=== PATIENT | male | born 1970 | race Caucasian/White ===

== ENCOUNTER 2016-09-19 08:20 | Day surgery (SDC) | payer OTHER ==
[~2016-09-19] VITALS: Ht 177.8 cm; Wt 143.3 kg
--- NOTE | 2016-10-16 11:41 | OR ---
ADMIT: 09/19/2016 RM/LOC: [facility] MR#: [id number] [address] XANDER MARTÍNEZ [address] [place] [address] Operative/Delivery Room Report SEX: M AGE: 45 : 1970 SURGERY DATE: 09/19/2016 SURGEON: Solo Nugent MD SALES PROCESS MANAGER: CESAR Folwer PREPROCEDURE DIAGNOSES: 1. Bilateral inguinal hernias. 2. Umbilical hernia. POSTPROCEDURE DIAGNOSES: 1. Bilateral direct inguinal hernias. 2. Umbilical hernia. PROCEDURE: Laparoscopic bilateral inguinal hernia repair with mesh and open umbilical hernia repair with mesh. INDICATIONS: The patient is a morbidly obese, 45-year-old with symptomatic reducible bilateral inguinal hernias and reducible umbilical hernia presents for laparoscopic and open repairs. FINDINGS: The patient was taken to the operating room. General endotracheal anesthesia was induced. The patient's abdomen was prepped and draped in normal sterile fashion. The case was begun by making a transverse, infraumbilical, 3 cm skin incision using #11 blade. Dissection was carried down through subcutaneous fat. Using S shaped retractors, the anterior abdominal wall fascia to the right side of midline was incised vertically for a cm and half with #11 blade. The rectus muscle was retracted laterally. Preperitoneal balloon was placed into the preperitoneal space and insufflated under direct vision. The camera port was placed, CO2 was insufflated. Two midline 5 mm ports were placed under direct vision. The case was begun with atraumatic clamps to dissect out Vijay's ligament bilaterally and lateral to the epigastric vessels bilaterally. The patient was noted to have a right greater than left direct inguinal hernia defect that was easily reduced. There was no evidence of an indirect hernia on either side although I did dissect the peritoneal lining off the spermatic cord structures so our mesh could lay flat against the backside of the inguinal floor. We elected due to the patient's size, use both a large left and right preperitoneal 3D meshes and I put those into the intra-abdominal space. I covered both respective floors and tacked the medial inferior aspect of the mesh to Vijay's ligament bilaterally and then one secure strap both medial and lateral to the epigastric vessels bilaterally in a more cephalad fashion. We held the lower ADMIT: 09/19/2016 RM/LOC: [facility] MR#: [id number] [address] [place] [address] Operative/Delivery Room Report SEX: M AGE: 45 : 1970 edge of the mesh as we desufflated the preperitoneal space. With our mesh in excellent position, I removed all of our ports. We then dissected out the umbilical hernia sac with electrocautery, placed a 4 cm circular mesh into the intra-abdominal space, sutured the mesh to the surrounding fascial edges using interrupted 0 Ethibond suture. I cut the mesh tails and then closed the umbilical fascial defect over the top of our mesh incorporating the mesh tails with 4 separate interrupted [id number] 0 Ethibond sutures. I injected 0.5% Marcaine subdermally, subfascially for postoperative analgesia, closed the skin sites with interrupted 4-0 Vicryl subcuticular skin stitches. The wounds were cleaned and dried. Steri-Strips and Tegaderms were applied over the top. Needle, sponge, and instrument counts were correct at the end of the case. The patient was extubated went to recovery in good condition. Solo Nugent MD/ elizabet JOB #: [id number] CC: Solo Nugent, Attending Physician Shahab Carcamo, Family Physician
== END 2016-09-19 18:20 | disposition home or self-care (01) ==
LOC: SSS 08:20
DX: K40.20 Bilateral inguinal hernia, without obstruction or gangrene, not specified as recurrent (principal); K42.9 Umbilical hernia without obstruction or gangrene; G47.30 Sleep apnea, unspecified; I10 Essential (primary) hypertension; K21.9 Gastro-esophageal reflux disease without esophagitis; E66.9 Obesity, unspecified; Z79.899 Other long term (current) drug therapy; Z98.890 Other specified postprocedural states; Z99.89 Dependence on other enabling machines and devices; Z88.1 Allergy status to other antibiotic agents